=== PATIENT | female | born 1965 | race Two or more races ===

== ENCOUNTER 2016-10-16 16:20 | Emergency (ER) | payer OTHER ==
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
== END 2016-10-16 17:03 | disposition home or self-care (01) ==
LOC: CFTX 16:20
DX: S80.02XA Contusion of left knee, initial encounter (principal); S80.01XA Contusion of right knee, initial encounter; V49.40XA Driver injured in collision with unspecified motor vehicles in traffic accident, initial encounter; Y92.410 Unspecified street and highway as the place of occurrence of the external cause
CPT/HCPCS: 73560; 99284